=== PATIENT | male | born 1970 | race Caucasian/White ===

== ENCOUNTER 2022-05-04 04:16 | Emergency (ER) | payer OTHER ==
[2022-05-04] MEDS ORDERED: SODIUM CHLORIDE 0.9% 500 ML 500 ML IV STA (04:53)
[2022-05-04] MEDS ORDERED: IBUPROFEN 600 MG TAB PO STA (04:53)
[2022-05-04] MEDS ORDERED: ACETAMINOPHEN TAB 500 MG TAB PO STA (04:53)
[2022-05-04] MEDS ORDERED: MORPHINE SULFATE 4 MG/ML SYRINGE IV STA (04:53)
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
[2022-05-04 05:02] LABS: Basophils % (A) 1 %; Eosinophils # (A) 0.2 k/uL (0-0.7); Eosinophils % (A) 3 %; HCT 42.3 % (39.0-53.0); HGB 14.3 gm/dL (13.0-17.5); Lymphocytes # (A) 2.6 k/uL (1.0-4.8); Lymphocytes % (A) 31 %; MCHC 33.7 g/dL (31.0-37.0); Mean Platelet Volume 7.8; Monocytes # (A) 0.6 k/uL (0-1.0); Monocytes % (A) 7 %; Neutrophils # (A) 4.6 k/uL (1.3-7.7); Neutrophils % (A) 56 %; Platelet Count 269 k/uL (150-450); RBC 4.92 m/uL (4.30-5.90); WBC 8.1 k/uL (3.8-10.6)
[2022-05-04 05:05] VITALS: BP 140/91; PULSE 107; RESP 18; TEMP 98.4
[2022-05-04 05:20] LABS: ALT 27 U/L (4-49); AST 26 U/L (17-59); African American GFR (CKD) >90 (>60 ml/min/1.73 sqM); Albumin 4.1 g/dL (3.5-5.0); Alkaline Phosphatase 74 U/L (38-126); Anion Gap 14 mmol/L; Blood Urea Nitrogen 19 mg/dL (9-20); Carbon Dioxide 20 mmol/L (22-30); Chloride 103 mmol/L (98-107); Glucose 146 mg/dL (74-99); Magnesium 1.9 mg/dL (1.6-2.3); Non-African American GFR(CKD) 80 (>60 ml/min/1.73 sqM); Phosphorus 3.2 mg/dL (2.5-4.5); Sodium 137 mmol/L (137-145); Total Bilirubin 0.7 mg/dL (0.2-1.3); Total Protein 6.6 g/dL (6.3-8.2)
[2022-05-04] MEDS ORDERED: traMADol 50 MG STARTER PACK 3 TAB BTL PO STA (05:23)
[2022-05-04] MEDS ORDERED: ONDANSETRON 4 MG ODT STARTER PACK 2 TAB BTL PO STA (05:23)
[2022-05-04] MEDS ORDERED: ACET/COD 300 MG/30 MG STARTER PACK 6 TAB BTL PO STA (05:23)
[2022-05-04] MEDS ORDERED: IBUPROFEN 600 MG STARTER PACK 4 TAB BTL PO STA (05:23)
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
[2022-05-04] MEDS ORDERED: BACITRACIN OINT 1 EACH PACKET TOPICAL ONE (06:05)
== END 2022-05-04 06:37 | disposition home or self-care (01) ==
LOC: EC 04:16
DX: T23.121A Burn of first degree of single right finger (nail) except thumb, initial encounter (principal); X19.XXXA Contact with other heat and hot substances, initial encounter
CPT/HCPCS: 36415; 93005; 80053; 83735; 84100; 85025; 71045; 99284; 96374; J2270; S0119